=== PATIENT | male | born 1980 | race Caucasian/White ===

== ENCOUNTER 2024-08-19 19:16 | Emergency (ER) | payer OTHER, SELFPAY ==
[2024-08-19 19:26] VITALS: BP 125/90; PULSE 83; RESP 18; TEMP 36.6; O2SAT 99
--- NOTE | 2024-08-19 19:28 | ED.URI ---
HPI - URI/Sore Throat General Chief Complaint: Upper Respiratory Infection Stated Complaint: congestion and itchiness History of Present Illness HPI Narrative: patient presents with complaints of 3 months of sinus pain and congestion. He has been taking Benadryl and ibuprofen intermittently with moderate relief. He reports nasally voice, purulent nasal discharge. Pain across the forehead. Denies any injury or trauma. In addition to this, he does report intermittent scattered rash for about 6 weeks. Works as a contractor. Unsure what he was exposed to. Rash is primarily on arms when present Related Data Allergies Allergy/AdvReac Type Severity Reaction Status Date / Time No Known Allergies Allergy Verified 08/19/24 19:18 Review of Systems Review of Systems: All systems reviewed & are unremarkable except as noted in HPI and below Constitutional: Constitutional: Reports no additional constitutional complaints ENT: Reports system reviewed and no additional complaints, except as documented, Reports change in voice, Reports nasal congestion, Reports nasal discharge, Reports post nasal drip, Reports sinus pain, Reports sinus pressure and Reports sore throat Cardiovascular: Cardiovascular: Reports no additional cardiovascular complaints Respiratory: Respiratory: Reports no additional respiratory complaints Gastrointestinal: Gastrointestinal: Reports no additional gastrointestinal complaints Integumentary/Breasts: Skin/Breast: Reports system reviewed and no additional complaints, except as docu and Reports as per HPI Allergic/Immunologic: Allergic/Immunologic: Reports as per HPI Exam Const: General: cooperative, no acute distress, alert and awake Orientation/consciousness: oriented to person, oriented to place and oriented to time HENMT: Head: normal to inspection Ears: TM abnormal dull bilateral Face and sinus: sinus tenderness Mouth: Yes moist mucous membranes Throat: posterior oropharynx abnormal erythema Resp: Effort & Inspection: normal respiratory effort and able to speak in complete sentences Auscultation: clear to auscultation bilaterally, no crackles, no rales, no rhonchi and no wheezes Cardio: Palpation: normal PMI Rate: regular rate Rhythm: regular rhythm Heart sounds: S1 normal heart sound present and S2 normal heart sound present Neuro: General: oriented to person, oriented to place and oriented to time Cranial nerves: Yes CN's II-XII intact bilaterally Psych: Appearance: grossly normal Thought process: Normal thought process present Insight: Good insight present (Psych) Judgement: Good judgement present (Psych) Course Course Level of Care: Express Care Visit Vital Signs Vital signs: Vital Signs Temperature 97.9 F 10/23/24 19:26 Pulse Rate 83 08/19/24 19:26 Respiratory Rate 18 08/19/24 19:26 Blood Pressure 125/90 08/19/24 19:26 Pulse Oximetry 99 08/19/24 19:26 Oxygen Delivery Room Air 08/19/24 19:26 Temperature 97.9 F 08/19/24 19:26 Pulse Rate 83 08/19/24 19:26 Respiratory Rate 18 08/19/24 19:26 Blood Pressure 125/90 08/19/24 19:26 Pulse Oximetry 99 08/19/24 19:26 Oxygen Delivery Room Air 08/19/24 19:26 MDM - URI/Sore Throat MDM Narrative Medical decision making narrative: history and exam consistent with sinusitis. Nasally voice noted. Treat with prednisone burst x5 days, Augmentin x7 days. Patient nontoxic appearing, stable for discharge home. Discharge instructions reviewed with patient, as well as provided in writing per nursing staff. The instructions also include specific and strict return/GO TO THE ER as well as f/u information. All questions have been answered, and the patient deny any further questions with discharge and discharge plan. Some parts of this dictation were generated by voice recognition software and may contain typographical and/or grammatical inaccuracies. Differential Diagnosis Differential diagnosis: Likely up
== END 2024-08-19 19:40 | disposition home or self-care (01) ==
PROVIDERS: Emergency Provider Nurse Practitioner Family; Referring Provider Emergency Medicine
DX: J01.10 Acute frontal sinusitis, unspecified (principal)
CPT/HCPCS: 99203; G0463